=== PATIENT | female | born 1985 ===

== ENCOUNTER 2022-09-11 06:00 | Day surgery (SDC) | payer OTHER ==
[~2022-09-11 06:00] MED LIST: LABETALOL HCL200 MG PO
== END 2022-09-11 21:50 | disposition home or self-care (01) ==
LOC: CIR.AMB 06:00
PROVIDERS: ATTEND Obstetrics & Gynecology
DX: O02.1 Missed abortion (principal); O72.2 Delayed and secondary postpartum hemorrhage; Z20.822 Contact with and (suspected) exposure to COVID-19; I10 Essential (primary) hypertension